=== PATIENT | male | born 1965 | race Caucasian/White ===

== ENCOUNTER 2019-08-06 14:21 | Inpatient (IN) | payer BC ==
[~2019-08-06] VITALS: Ht 193 cm; Wt 107.0 kg
[2019-08-06] MEDS ORDERED: IV NORMAL SALINE 1000ML BAG 1,000 ML IV ONE (16:15)
[2019-08-06 16:23] LABS: BASO # 0.1 x10^3/uL (0.0-0.2); BASO % 1 % (0-3); EOS # 0.1 x10^3/uL (0.0-0.7); EOS % 1 % (0-3); HEMATOCRIT 33.2 % (39.0-53.0); HEMOGLOBIN 11.3 g/dL (13.0-17.5); LYMPH # 1.7 x10^3/uL (1.0-4.8); LYMPH % 17 % (24-48); MEAN CORPUSCULAR HEMOGLOBIN 28 pg (25-35); MEAN CORPUSCULAR HGB CONC 34 g/dL (31-37); MEAN CORPUSCULAR VOLUME 84 fL (79-100); MONO # 0.6 x10^3/uL (0.0-1.1); MONO % 6 % (0-9); NEUT # 7.6 x10^3/uL (1.8-7.7); NEUT % 75 % (31-73); PLATELET COUNT 238 x10^3/uL (140-400); RED BLOOD COUNT 3.97 x10^6/uL (4.30-5.70); RED CELL DISTRIBUTION WIDTH 14.5 % (11.5-14.5); WHITE BLOOD COUNT 10.1 x10^3/uL (4.0-11.0)
[2019-08-06 16:32] LABS: CALCIUM 8.7 mg/dL (8.5-10.1); CREATININE 1.8 mg/dL (0.7-1.3); GFR 39.4; POTASSIUM 4.2 mmol/L (3.5-5.1)
[2019-08-06 16:38] LABS: ALBUMIN 3.1 g/dL (3.4-5.0); ALBUMIN/GLOBULIN RATIO 0.8 (1.0-1.7); TOTAL BILIRUBIN 0.5 mg/dL (0.2-1.0); TOTAL PROTEIN 7.2 g/dL (6.4-8.2)
--- NOTE | 2019-08-06 16:40 | RAD ---
EXAM: AP, oblique and lateral views of the right foot DATE: 08/06/2019 4:14 PM INDICATION: Right great toe pain, open ulcer COMPARISON: No Prior FINDINGS: Soft tissue swelling and irregularity at the plantar aspect of the right great toe consistent with clinically provided history of ulceration. Subtle irregularity is seen at the lateral margin of the tuft of the distal phalanx right great toe, suspicious for erosive change, which may be seen with acute osteomyelitis. Acute intra-articular fractures of the proximal phalanx fourth toe (extending to the PIP joint) and proximal phalanx fifth toe extending to the MTP and PIP joints. Associated soft tissue swelling. Midfoot degenerative changes are seen with cystic change. Calcaneal enthesopathy. Atherosclerotic vascular calcifications are seen. IMPRESSION: 1. Soft tissue irregularity/ulceration with shallow erosion at the lateral margin of the right great toe tuft suspicious for acute osteomyelitis. 2. Intra-articular fractures of the proximal phalanx fourth and fifth toes. Electronically signed by: Denilson Alvarado MD (08/06/2019 4:37 PM) [id number]
[2019-08-06] MEDS ORDERED: VANCOMYCIN 1.5 GM in IV NORMAL SALINE 500ML BAG 500 ML IV ONE (17:15)
--- NOTE | 2019-08-06 17:16 | PHYS DOC ---
Past Medical History Past Medical History: Diabetes-Type II, Hypertension, Other Additional Past Medical Histor: NEUROPATHY Past Surgical History: Coronary Bypass Surgery, Other Additional Past Surgical Histo: NECK Smoking Status: Never Smoker Alcohol Use: None Adult General Chief Complaint Chief Complaint: FOOT INJURY PAIN [facility] HPI Patient is a 54 year old [f__sex] who presents with [] Review of Systems Review of Systems Constitutional: Denies fever or chills [] Eyes: Denies change in visual acuity, redness, or eye pain [] HENT: Denies nasal congestion or sore throat [] Respiratory: Denies cough or shortness of breath [] Cardiovascular: No additional information not addressed in HPI [] GI: Denies abdominal pain, nausea, vomiting, bloody stools or diarrhea [] : Denies dysuria or hematuria [] Musculoskeletal: Denies back pain or joint pain [] Integument: Denies rash or skin lesions [] Neurologic: Denies headache, focal weakness or sensory changes [] Endocrine: Denies polyuria or polydipsia [] All other systems were reviewed and found to be within normal limits, except as documented in this note. Current Medications Current Medications Current Medications Medications (Trade) Dose Ordered Sig/Carla Start Time Stop Time Status Last Admin Dose Admin Sodium Chloride 1,000 ml @ 1,000 mls/hr 1X ONCE 08/06/19 16:15 08/06/19 17:14 08/06/19 16:31 1,000 MLS/HR Allergies Allergies Allergies Coded Allergies Type Severity Reaction Last Updated Verified Penicillins Adverse Reaction Mild "IT DOESN'T HELP ME,IT DOESN'T HURT ME" 08/06/19 Yes Physical Exam Physical Exam Constitutional: Well developed, well nourished, no acute distress, non-toxic appearance. [] HENT: Normocephalic, atraumatic, bilateral external ears normal, oropharynx moist, no oral exudates, nose normal. [] Eyes: PERRLA, EOMI, conjunctiva normal, no discharge. [] Neck: Normal range of motion, no tenderness, supple, no stridor. [] Cardiovascular:Heart rate regular rhythm, no murmur [] Lungs & Thorax: Bilateral breath sounds clear to auscultation [] Abdomen: Bowel sounds normal, soft, no tenderness, no masses, no pulsatile masses. [] Skin: Warm, dry, no erythema, no rash. [] Back: No tenderness, no CVA tenderness. [] Extremities: No tenderness, no cyanosis, no clubbing, ROM intact, no edema. [] Neurologic: Alert and oriented X 3, normal motor function, normal sensory function, no focal deficits noted. [] Psychologic: Affect normal, judgement normal, mood normal. [] Current Patient Data Vital Signs Vital Signs Date Time Temp Pulse Resp B/P (MAP) Pulse Ox O2 Delivery O2 Flow Rate FiO2 08/06/19 15:30 99.6 96 17 165/90 (115) 97 Room Air 99.6 Lab Values Laboratory Tests Test 08/06/19 15:58 White Blood Count 10.1 x10^3/uL (4.0-11.0) Red Blood Count 3.97 x10^6/uL (4.30-5.70) L Hemoglobin 11.3 g/dL (13.0-17.5) L Hematocrit 33.2 % (39.0-53.0) L Mean Corpuscular Volume 84 fL (79-100) Mean Corpuscular Hemoglobin 28 pg (25-35) Mean Corpuscular Hemoglobin Concent 34 g/dL (31-37) Red Cell Distribution Width 14.5 % (11.5-14.5) Platelet Count 238 x10^3/uL (140-400) Neutrophils (%) (Auto) 75 % (31-73) H Lymphocytes (%) (Auto) 17 % (24-48) L Monocytes (%) (Auto) 6 % (0-9) Eosinophils (%) (Auto) 1 % (0-3) Basophils (%) (Auto) 1 % (0-3) Neutrophils # (Auto) 7.6 x10^3/uL (1.8-7.7) Lymphocytes # (Auto) 1.7 x10^3/uL (1.0-4.8) Monocytes # (Auto) 0.6 x10^3/uL (0.0-1.1) Eosinophils # (Auto) 0.1 x10^3/uL (0.0-0.7) Basophils # (Auto) 0.1 x10^3/uL (0.0-0.2) Sodium Level 136 mmol/L (136-145) Potassium Level 4.2 mmol/L (3.5-5.1) Chloride Level 100 mmol/L (98-107) Carbon Dioxide Level 24 mmol/L (21-32) Anion Gap 12 (6-14) Blood Urea Nitrogen 19 mg/dL (8-26) Creatinine 1.8 mg/dL (0.7-1.3) H Estimated GFR (Cockcroft-Gault) 39.4 BUN/Creatinine Ratio 11 (6-20) Glucose Level 445 mg/dL (70-99) H Lactic Acid Level 1.6 mmol/L (0.4-2.0) Calcium Level 8.7 mg/dL (8.5-10.1) Total Bilirubin 0.5 mg/dL (0.2-1.0) Aspartate Amino Transferase (AST) 15 U/L (15-37) Alanine Aminotransferase (ALT) 16 U/L (16-63) Alkaline Phosphatase 109 U/L (46-116) Total Protein 7.2 g/dL (6.4-8.2) Albumin 3.1 g/dL (3.4-5.0) L Albumin/Globulin Ratio 0.8 (1.0-1.7) L Laboratory Tests 08/06/19 15:58 Laboratory Tests 08/06/19 15:58 EKG EKG [] Radiology/Procedures Radiology/Procedures PROCEDURE: FOOT RIGHT 3V EXAM: AP, oblique and lateral views of the right foot DATE: 08/06/2019 4:14 PM INDICATION: Right great toe pain, open ulcer COMPARISON: No Prior FINDINGS: Soft tissue swelling and irregularity at the plantar aspect of the right great toe consistent with clinically provided history of ulceration. Subtle irregularity is seen at the lateral margin of the tuft of the distal phalanx right great toe, suspicious for erosive change, which may be seen with acute osteomyelitis. Acute intra-articular fractures of the proximal phalanx fourth toe (extending to the PIP joint) and proximal phalanx fifth toe extending to the MTP and PIP joints. Associated soft tissue swelling. Midfoot degenerative changes are seen with cystic change. Calcaneal enthesopathy. Atherosclerotic vascular calcifications are seen. IMPRESSION: 1. Soft tissue irregularity/ulceration with shallow erosion at the lateral margin of the right great toe tuft suspicious for acute osteomyelitis. 2. Intra-articular fractures of the proximal phalanx fourth and fifth toes.[] Course & Med Decision Making Course & Med Decision Making Pertinent Labs and Imaging studies reviewed. (See chart for details) [id number]-spoke with Dr. Dougherty who is the admitting physician, and care was assumed following discussion of patient. Patient's vital signs stable. Patient remains afebrile, appears nontoxic, respirations even and unlabored. Patient will be admitted to the med/surg floor. Patient's case and plan of care also discussed with Dr.Kousha Conde Disclaimer Elton Disclaimer This electronic medical record was generated, in whole or in part, using a voice recognition dictation system. Departure Departure Impression: Primary Impression: Acute osteomyelitis of right foot Additional Impressions: Closed fracture of right toe with routine healing Hyperglycemia Disposition: ADMITTED INPATIENT Admitting Physician: EMY BOURNE) Condition: STABLE Referrals: SAURAV ORDONEZ MD (PCP) Problem Qualifiers Additional Impressions: Closed fracture of right toe with routine healing Toe: lesser toe Phalanx: proximal Fracture alignment: nondisplaced Qualified Codes: S92.514D - Nondisplaced fracture of proximal phalanx of right lesser toe(s), subsequent encounter for fracture with routine healing IZABELA OROPEZA [employer] LEAD[employer] Aug 06, 2019 17:16
--- NOTE | 2019-08-06 17:48 | PHYS DOC ---
Past Medical History Past Medical History: Diabetes-Type II, Hypertension, Other Additional Past Medical Histor: NEUROPATHY Past Surgical History: Coronary Bypass Surgery, Other Additional Past Surgical Histo: NECK Smoking Status: Never Smoker Alcohol Use: None Adult General Chief Complaint Chief Complaint: FOOT INJURY PAIN HPI HPI Patient is a 54 year old male who presents to the emergency department with complaints of a wound, swelling, and erythema to his right great toe that has been there for over a month. Patient states that he accidentally kicked a door at that time and that is when his symptoms began.. Patient states that his right fourth and fifth toes are also painful. He denies any fever or decreased sensation. Patient states that he is a diabetic and that he has pre-existing diabetic neuropathy in his toes. He currently denies any pain. He states that his last tetanus shot was less than 5 years ago. Review of Systems Review of Systems Constitutional: Denies fever or chills [] Eyes: Denies redness, or eye pain [] HENT: Denies nasal congestion or sore throat [] Respiratory: Denies cough or shortness of breath [] Cardiovascular: No additional information not addressed in HPI [] GI: Denies abdominal pain, nausea, vomiting, or diarrhea [] Musculoskeletal: SEE HPI Integument: see HPI Neurologic: Denies headache, focal weakness or sensory changes [] Endocrine: Denies polyuria or polydipsia [] Complete systems were reviewed and found to be within normal limits, except as documented in this note. Current Medications Current Medications Current Medications Medications (Trade) Dose Ordered Sig/Carla Start Time Stop Time Status Last Admin Dose Admin Sodium Chloride 1,000 ml @ 1,000 mls/hr 1X ONCE 08/06/19 16:15 08/06/19 17:14 08/06/19 16:31 1,000 MLS/HR Allergies Allergies Allergies Coded Allergies Type Severity Reaction Last Updated Verified Penicillins Adverse Reaction Mild "IT DOESN'T HELP ME,IT DOESN'T HURT ME" 08/06/19 Yes Physical Exam Physical Exam Constitutional: Well developed, well nourished, no acute distress, non-toxic appearance. [] HENT: Normocephalic, atraumatic, bilateral external ears normal, nose normal. [] Eyes: PERRLA, EOMI, conjunctiva normal, no discharge. [] Neck: Normal range of motion, no stridor. [] Cardiovascular:Heart rate regular rhythm Lungs & Thorax: Respirations even and unlabored, no retractions, no respiratory distress Skin: Warm, dry; 1.5 cm diameter necrotic area noted to plantar surface of distal R great toe with 5 cm x 2cm area that is non-blanchable surrounding this tissue, honey crusted weeping present at the base of the 3rd and 4th toes, generalized edema noted to R foot and toes, no obvious deformities, several scabbed areas notd to the R ankle and foot Extremities: RLE: 2+ pedal and posterior tibial puslse, no obvious deformity, no crepitus, no cyanosis, no clubbing, ROM intact Neurologic: Alert and oriented X 3, no focal deficits noted. [] Psychologic: Affect normal, judgement normal, mood normal. [] Current Patient Data Vital Signs Vital Signs Date Time Temp Pulse Resp B/P (MAP) Pulse Ox O2 Delivery O2 Flow Rate FiO2 08/06/19 15:30 99.6 96 17 165/90 (115) 97 Room Air 99.6 Lab Values Laboratory Tests Test 08/06/19 15:58 White Blood Count 10.1 x10^3/uL (4.0-11.0) Red Blood Count 3.97 x10^6/uL (4.30-5.70) L Hemoglobin 11.3 g/dL (13.0-17.5) L Hematocrit 33.2 % (39.0-53.0) L Mean Corpuscular Volume 84 fL (79-100) Mean Corpuscular Hemoglobin 28 pg (25-35) Mean Corpuscular Hemoglobin Concent 34 g/dL (31-37) Red Cell Distribution Width 14.5 % (11.5-14.5) Platelet Count 238 x10^3/uL (140-400) Neutrophils (%) (Auto) 75 % (31-73) H Lymphocytes (%) (Auto) 17 % (24-48) L Monocytes (%) (Auto) 6 % (0-9) Eosinophils (%) (Auto) 1 % (0-3) Basophils (%) (Auto) 1 % (0-3) Neutrophils # (Auto) 7.6 x10^3/uL (1.8-7.7) Lymphocytes # (Auto) 1.7 x10^3/uL (1.0-4.8) Monocytes # (Auto) 0.6 x10^3/uL (0.0-1.1) Eosinophils # (Auto) 0.1 x10^3/uL (0.0-0.7) Basophils # (Auto) 0.1 x10^3/uL (0.0-0.2) Sodium Level 136 mmol/L (136-145) Potassium Level 4.2 mmol/L (3.5-5.1) Chloride Level 100 mmol/L (98-107) Carbon Dioxide Level 24 mmol/L (21-32) Anion Gap 12 (6-14) Blood Urea Nitrogen 19 mg/dL (8-26) Creatinine 1.8 mg/dL (0.7-1.3) H Estimated GFR (Cockcroft-Gault) 39.4 BUN/Creatinine Ratio 11 (6-20) Glucose Level 445 mg/dL (70-99) H Lactic Acid Level 1.6 mmol/L (0.4-2.0) Calcium Level 8.7 mg/dL (8.5-10.1) Total Bilirubin 0.5 mg/dL (0.2-1.0) Aspartate Amino Transferase (AST) 15 U/L (15-37) Alanine Aminotransferase (ALT) 16 U/L (16-63) Alkaline Phosphatase 109 U/L (46-116) Total Protein 7.2 g/dL (6.4-8.2) Albumin 3.1 g/dL (3.4-5.0) L Albumin/Globulin Ratio 0.8 (1.0-1.7) L Laboratory Tests 08/06/19 15:58 Laboratory Tests 08/06/19 15:58 EKG EKG [] Radiology/Procedures Radiology/Procedures PROCEDURE: FOOT RIGHT 3V EXAM: AP, oblique and lateral views of the right foot DATE: 08/06/2019 4:14 PM INDICATION: Right great toe pain, open ulcer COMPARISON: No Prior FINDINGS: Soft tissue swelling and irregularity at the plantar aspect of the right great toe consistent with clinically provided history of ulceration. Subtle irregularity is seen at the lateral margin of the tuft of the distal phalanx right great toe, suspicious for erosive change, which may be seen with acute osteomyelitis. Acute intra-articular fractures of the proximal phalanx fourth toe (extending to the PIP joint) and proximal phalanx fifth toe extending to the MTP and PIP joints. Associated soft tissue swelling. Midfoot degenerative changes are seen with cystic change. Calcaneal enthesopathy. Atherosclerotic vascular calcifications are seen. IMPRESSION: 1. Soft tissue irregularity/ulceration with shallow erosion at the lateral margin of the right great toe tuft suspicious for acute osteomyelitis. 2. Intra-articular fractures of the proximal phalanx fourth and fifth toes.[] Course & Med Decision Making Course & Med Decision Making Pertinent Labs and Imaging studies reviewed. (See chart for details) 1709-spoke with Dr. Dougherty who is the admitting physician, and care was assumed following discussion of patient. Patient's vital signs stable. Patient remains afebrile, appears nontoxic, resp irations even and unlabored. Patient will be admitted to the med/surg floor. Patient's case and plan of care also discussed with Dr.Kousha Conde Disclaimer Elton Disclaimer This electronic medical record was generated, in whole or in part, using a voice recognition dictation system. Departure Departure Impression: Primary Impression: Acute osteomyelitis of right foot Additional Impressions: Hyperglycemia Closed fracture of right toe with routine healing Disposition: ADMITTED INPATIENT Admitting Physician: EMY (Farhat) Condition: STABLE Referrals: SAURAV ORDONEZ MD (PCP) Problem Qualifiers Additional Impressions: Closed fracture of right toe with routine healing Toe: lesser toe Phalanx: proximal Fracture alignment: nondisplaced Qu alified Codes: S92.514D - Nondisplaced fracture of proximal phalanx of right lesser toe(s), subsequent encounter for fracture with routine healing IZABELA OROPEZA [employer]OVER Aug 06, 2019 17:48
[2019-08-06] MEDS: VANCOMYCIN PER PHARMACY MC PRN (18:32)
--- NOTE | 2019-08-06 18:40 | NUR ---
Pharmacy Vancomycin Dosing Note S:Consulted to monitor and dose vancomycin started 08/06/19. O:KERRY STALEY is a 54 year old M with Osteomyelitis Height: 6 feet, 4 inches Weight: 106.8 kg [place] Body Weight: 86.80 Adjusted Body Weight: 94.80 Dosing Weight: Actual Other Antibiotics: - LABS: Last BUN: 19 Last Creatinine: 1.8 Creatinine Clearance: 62 mL/min Last WBC: 10.1 Last Procalcitonin: Tmax (past 24 hours): 99.6 Last dose given 08/06/19 at 1821 Vancomycin Dosing: Loading Dose: 1500 mg x1 Dosing Weight: Actual Target Trough: 15-20 A: Based on: weight and renal function P: 1. Begin Vancomycin 1500 mg IV q18h 2. Follow up Trough level on 08/08/19 at 0600 3. Pharmacy will continue to monitor, follow and adjust therapy as needed. Santa Jamison RPH, 08/06/19 [id number]
[2019-08-06 19:00] VITALS: BP 159/69
[2019-08-06] MEDS ORDERED: GABA300C18 PO (20:52)
[2019-08-06] MEDS ORDERED: LISI-338 PO (20:52)
[2019-08-06] MEDS ORDERED: METF10007 PO (20:52)
[2019-08-06] MEDS ORDERED: ICOS1CAP PO (20:52)
[2019-08-06] MEDS ORDERED: ATOR40TA59 PO (20:52)
[2019-08-06] MEDS ORDERED: INSU100V37 SQ (20:52)
[2019-08-06] MEDS ORDERED: CITA40TA5 PO (20:52)
[2019-08-06] MEDS ORDERED: EMPA1TAB3 PO (20:52)
[2019-08-06] MEDS ORDERED: ASPI81TA50 PO (20:52)
[2019-08-06] MEDS ORDERED: CARV6.25 PO (20:52)
[2019-08-06 23:00] VITALS: BP 143/65
[2019-08-07] VITALS (11 sets, daily range): BP systolic 140–169; BP diastolic 65–89
[2019-08-07] MEDS ORDERED: FLU VAX QS 2019-20 (36MOS+)/PF 0.5 ML SYRINGE. VAX IM ONE (09:00)
[2019-08-07 12:21] LABS: CREATININE 1.3 mg/dL (0.7-1.3); GFR 57.3
[2019-08-07] MEDS ORDERED: VANCOMYCIN 1.5 GM in IV NORMAL SALINE 500ML BAG 500 ML IV SCH (12:30)
[2019-08-07] MEDS ORDERED: DEXTROSE 50% 25 GM / 50ML DISP.SYRIN. IV PRN ×2 (15:00→15:15)
--- NOTE | 2019-08-07 15:19 | PDOC1 ---
History and Physical Date of Admission Date of Admission DATE: 08/07/19 TIME: 15:09 Source Source: Chart review, Patient History of Present Illness History of Present Illness Mr. Aguilar, is a 54 year old male admit with toe injury, he has new toe wound, swelling, and erythema to his right great toe that has been there for over a month. Patient states that he accidentally kicked a door at that time and that is whe He currently denies any pain. Past Medical History Cardiovascular: CAD, HTN Psych: Depression Endocrine: Diabetes Past Surgical History Past Surgical History: CABG (x4 3 years ago) Family History Family History: Diabetes Social History Smoke: No ALCOHOL: none Drugs: None Current Problem List Problem List Problems Medical Problems: (1) Acute osteomyelitis of right foot Status: Acute (2) Closed fracture of right toe with routine healing Status: Acute (3) Hyperglycemia Status: Acute Current Medications Current Medications Current Medications Sodium Chloride 1,000 ml @ 1,000 mls/hr 1X ONCE IV Last administered on 08/06/19at 16:31; Start 08/06/19 at 16:15; Stop 08/06/19 at 17:14; Status DC Cefazolin Sodium/ Dextrose 50 ml @ 100 mls/hr 1X ONCE IV Last administered on 08/06/19at 17:31; Start 08/06/19 at 17:15; Stop 08/06/19 at 17:44; Status DC Vancomycin HCl (Vanco Per Pharmacy) 1 each PRN DAILY PRN MC SEE COMMENTS Last administered on 08/06/19at 18:32; Start 08/06/19 at 17:15 Vancomycin HCl 1.5 gm/Sodium Chloride 500 ml @ 250 mls/hr 1X ONCE IV Last administered on 08/06/19at 18:21; Start 08/06/19 at 17:15; Stop 08/06/19 at 19:14; Status DC Vancomycin HCl 1.5 gm/Sodium Chloride 500 ml @ 250 mls/hr Q18H IV ; Start 08/07/19 at 12:30 Vancomycin HCl (Vancomycin Trough Level) 1 each 1X ONCE MC ; Start 08/08/19 at 06:00; Stop 08/08/19 at 06:01 Influenza Virus Vaccine Quadrival (Afluria Quad 2019-20 (3yr Up) Syringe) 0.5 ml ONCE ONCE VAX IM ; Start 08/07/19 at 09:00; Stop 08/07/19 at 09:45; Status DC Active Scripts Active Reported Tresiba (Insulin Degludec) 100 Unit/1 Ml Vial 40 Unit SQ QHS Lisinopril 5 Mg Tablet 1 Tab PO DAILY Vascepa (Icosapent Ethyl) 1 Gm Capsule 2 Cap PO BID 30 Days Coreg (Carvedilol) 6.25 Mg Tablet 6.25 Mg PO BIDWMEALS Citalopram Hbr (Citalopram Hydrobromide) 40 Mg Tablet 1 Tab PO DAILY Aspir-Low (Aspirin) 81 Mg Tablet.dr 1 Tab PO DAILY Atorvastatin Calcium 40 Mg Tablet 1 Tab PO DAILY Glyxambi 10 mg-5 mg Tablet (Empagliflozin/Linagliptin) 1 Each Tablet 1 Each PO DAILY Gabapentin (Gabapentin) 300 Mg Capsule 300 Mg PO BID Metformin Hcl 1,000 Mg Tablet 1,000 Mg PO BIDWMEALS Allergies Allergies: Coded Allergies: Penicillins (Verified Adverse Reaction, Mild, "IT DOESN'T HELP ME,IT DOESN'T HURT ME", 08/06/19) ROS General: No: Chills, Night Sweats, Fatigue, Malaise, Appetite, Other PSYCHOLOGICAL ROS: No: Anxiety, Behavioral Disorder, Concentration difficultie, Decreased libido, Depression, Disorientation, Hallucinations, Hostility, Irritablity, Memory difficulties, Mood Swings, Obsessive thoughts, Physical abuse, Sexual abuse, Sleep disturbances, Suicidal ideation, Other Eyes: No Blurry vision, No Decreased vision, No Double vision, No Dry eyes, No Excessive tearing, No Eye Pain, No Itchy Eyes, No Loss of vision, No Photophobia, No Scotomata, No Uses contacts, No Uses glasses, No Other Respiratory: No: Cough, Hemoptysis, Orthopnea, Pleuritic Pain, Shortness of breath, SOB with excertion, Sputum Changes, Stridor, Tachypnea, Wheezing, Other Cardiovascular: No Palpitations, No Orthopnea, No Paroxysmal Noc. Dyspnea, No Edema, No Lt Headedness, No Other Gastrointestinal: No Nausea, No Vomiting, No Abdominal Pain, No Diarrhea, No Constipation, No Melena, No Hematochezia, No Other Genitourinary: No Dysuria, No Frequency, No Incontinence, No Hematuria, No Retention, No Discharge, No Urgency, No Pain, No Flank Pain, No Other, No , No , No , No , No , No , No Musculoskeletal: Yes Joint Stiffness; No Gait Disturbance, No Joint Pain, No Joint Swelling, No Muscle Pain, No Muscular Weakness, No Pain In:, No Swelling In:, No Other Neurological: No Behavorial Changes, No Bowel/Bladder ControlChng, No Confusion, No Dizziness, No Gait Disturbance, No Headaches, No Impaired Coord/balance, No Memory Loss, No Numbness/Tingling, No Seizures, No Speech Problems, No Tremors, No Visual Changes, No Weakness, No Other Skin: Yes Dry Skin Physical Exam General: Alert, Cooperative, No acute distress HEENT: EOMI Lungs: Clear to auscultation, Normal air movement Heart: S1S2, no murmurs Rectal Exam: not examined Extremities: No clubbing, No edema, Normal pulses Skin: No rashes, No significant lesion Neuro: Normal speech, Sensation intact, Cranial nerves 3-12 NL Psych/Mental Status: Mood NL Vitals Vitals Vital Signs Date Time Temp Pulse Resp B/P (MAP) Pulse Ox O2 Delivery O2 Flow Rate FiO2 08/07/19 11:00 98.0 89 18 162/83 (109) 97 Room Air 98.0 Labs Labs Laboratory Tests Test 08/06/19 15:58 08/07/19 06:00 08/07/19 08:29 08/07/19 11:36 White Blood Count 10.1 x10^3/uL (4.0-11.0) Red Blood Count 3.97 x10^6/uL (4.30-5.70) Hemoglobin 11.3 g/dL (13.0-17.5) Hematocrit 33.2 % (39.0-53.0) Mean Corpuscular Volume 84 fL (79-100) Mean Corpuscular Hemoglobin 28 pg (25-35) Mean Corpuscular Hemoglobin Concent 34 g/dL (31-37) Red Cell Distribution Width 14.5 % (11.5-14.5) Platelet Count 238 x10^3/uL (140-400) Neutrophils (%) (Auto) 75 % (31-73) Lymphocytes (%) (Auto) 17 % (24-48) Monocytes (%) (Auto) 6 % (0-9) Eosinophils (%) (Auto) 1 % (0-3) Basophils (%) (Auto) 1 % (0-3) Neutrophils # (Auto) 7.6 x10^3/uL (1.8-7.7) Lymphocytes # (Auto) 1.7 x10^3/uL (1.0-4.8) Monocytes # (Auto) 0.6 x10^3/uL (0.0-1.1) Eosinophils # (Auto) 0.1 x10^3/uL (0.0-0.7) Basophils # (Auto) 0.1 x10^3/uL (0.0-0.2) Sodium Level 136 mmol/L (136-145) Potassium Level 4.2 mmol/L (3.5-5.1) Chloride Level 100 mmol/L (98-107) Carbon Dioxide Level 24 mmol/L (21-32) Anion Gap 12 (6-14) Blood Urea Nitrogen 19 mg/dL (8-26) Creatinine 1.8 mg/dL (0.7-1.3) 1.3 mg/dL (0.7-1.3) Estimated GFR (Cockcroft-Gault) 39.4 57.3 BUN/Creatinine Ratio 11 (6-20) Glucose Level 445 mg/dL (70-99) Lactic Acid Level 1.6 mmol/L (0.4-2.0) Calcium Level 8.7 mg/dL (8.5-10.1) Total Bilirubin 0.5 mg/dL (0.2-1.0) Aspartate Amino Transf (AST/SGOT) 15 U/L (15-37) Alanine Aminotransferase (ALT/SGPT) 16 U/L (16-63) Alkaline Phosphatase 109 U/L (46-116) Total Protein 7.2 g/dL (6.4-8.2) Albumin 3.1 g/dL (3.4-5.0) Albumin/Globulin Ratio 0.8 (1.0-1.7) Glucose (Fingerstick) 300 mg/dL (70-99) 271 mg/dL (70-99) Laboratory Tests Test 08/06/19 15:58 08/07/19 06:00 08/07/19 08:29 08/07/19 11:36 White Blood Count 10.1 x10^3/uL (4.0-11.0) Red Blood Count 3.97 x10^6/uL (4.30-5.70) Hemoglobin 11.3 g/dL (13.0-17.5) Hematocrit 33.2 % (39.0-53.0) Mean Corpuscular Volume 84 fL (79-100) Mean Corpuscular Hemoglobin 28 pg (25-35) Mean Corpuscular Hemoglobin Concent 34 g/dL (31-37) Red Cell Distribution Width 14.5 % (11.5-14.5) Platelet Count 238 x10^3/uL (140-400) Neutrophils (%) (Auto) 75 % (31-73) Lymphocytes (%) (Auto) 17 % (24-48) Monocytes (%) (Auto) 6 % (0-9) Eosinophils (%) (Auto) 1 % (0-3) Basophils (%) (Auto) 1 % (0-3) Neutrophils # (Auto) 7.6 x10^3/uL (1.8-7.7) Lymphocytes # (Auto) 1.7 x10^3/uL (1.0-4.8) Monocytes # (Auto) 0.6 x10^3/uL (0.0-1.1) Eosinophils # (Auto) 0.1 x10^3/uL (0.0-0.7) Basophils # (Auto) 0.1 x10^3/uL (0.0-0.2) Sodium Level 136 mmol/L (136-145) Potassium Level 4.2 mmol/L (3.5-5.1) Chloride Level 100 mmol/L (98-107) Carbon Dioxide Level 24 mmol/L (21-32) Anion Gap 12 (6-14) Blood Urea Nitrogen 19 mg/dL (8-26) Creatinine 1.8 mg/dL (0.7-1.3) 1.3 mg/dL (0.7-1.3) Estimated GFR (Cockcroft-Gault) 39.4 57.3 BUN/Creatinine Ratio 11 (6-20) Glucose Level 445 mg/dL (70-99) Lactic Acid Level 1.6 mmol/L (0.4-2.0) Calcium Level 8.7 mg/dL (8.5-10.1) Total Bilirubin 0.5 mg/dL (0.2-1.0) Aspartate Amino Transf (AST/SGOT) 15 U/L (15-37) Alanine Aminotransferase (ALT/SGPT) 16 U/L (16-63) Alkaline Phosphatase 109 U/L (46-116) Total Protein 7.2 g/dL (6.4-8.2) Albumin 3.1 g/dL (3.4-5.0) Albumin/Globulin Ratio 0.8 (1.0-1.7) Glucose (Fingerstick) 300 mg/dL (70-99) 271 mg/dL (70-99) VTE Prophylaxis Ordered VTE Prophylaxis Devices: No VTE Pharmacological Prophylaxi: Yes Assessment/Plan Assessment/Plan Dm2, poor control, he reports sugars in 300 range at baseline toe injury at home, now appear to have cellulitis, concern for osteo CAD, hx CABG, x4, 3 years ago needs better blood glucose control admit RUPALI KEYS MD Aug 07, 2019 15:18
[2019-08-07] MEDS: VANCOMYCIN PER PHARMACY MC PRN (16:04)
[2019-08-07] MEDS ORDERED: INSULIN LISPRO 300 UNITS/3 ML VIAL. SQ SCH (17:00)
[2019-08-07] MEDS: INSULIN LISPRO 300 UNITS/3 ML VIAL. SQ SCH ×2 (17:00)
[2019-08-07] MEDS: metFORMIN 500 MG TABLET PO SCH (17:00)
[2019-08-07] MEDS: CARVEDILOL 6.25 MG TABLET. PO SCH (17:00)
--- NOTE | 2019-08-07 17:00 | NUR ---
Patient transferred to surgery area. They will check pt's blood sugar and give insulin
[2019-08-07] MEDS ORDERED: IV RINGERS,LACTATED 1000ML 1,000 ML IV SCH (17:34)
[2019-08-07] MEDS ORDERED: MORPHINE SULFATE 2 MG/ML VIAL. IV PRN (17:45)
[2019-08-07] MEDS ORDERED: LIDOCAINE 1% PF 2 ML VIAL. ID PRN (17:45)
[2019-08-07] MEDS ORDERED: fentaNYL PF VIAL 100 MCG/2 ML VIAL IV PRN ×2 (17:45)
[2019-08-07] MEDS ORDERED: PROCHLORPERAZINE 10 MG/2 ML VIAL. IV PRN (17:45)
[2019-08-07] MEDS ORDERED: HYDROmorphone 2 MG/ML VIAL IV PRN (17:45)
[2019-08-07] MEDS ORDERED: SEVOFLURANE 31 TO 60 MINUTES. IH ONE (17:48)
[2019-08-07] MEDS ORDERED: LIDOCAINE 2% PF 5 ML VIAL. ONE (17:48)
[2019-08-07] MEDS ORDERED: PROPOFOL 20 ML IV ONE (17:49)
[2019-08-07] MEDS ORDERED: ONDANSETRON PF 4 MG/2 ML VIAL. ONE (17:49)
[2019-08-07] MEDS ORDERED: METOCLOPRAMIDE HCL 10 MG/2 ML VIAL. ONE (17:49)
[2019-08-07] MEDS ORDERED: FAMOTIDINE 20 MG/2 ML VIAL ONE (17:49)
[2019-08-07] MEDS ORDERED: PHENYLEPHRINE in 0.9% NACL PF 1 MG/10 ML SYRINGE. IV ONE (18:01)
[2019-08-07] MEDS ORDERED: INSULIN LISPRO 100 UNIT/ML 3ML VIAL for OP,RR ONLY. SQ PRN (18:45)
--- NOTE | 2019-08-07 18:45 | NUR ---
Patient returned to room 412 from the OR recovery. He is alert and stating that pain is under control at the moment
[2019-08-07] MEDS ORDERED: ZOLPIDEM 5 MG TABLET. PO PRN (20:00)
--- NOTE | 2019-08-07 20:29 | PDOC4 ---
Operative Note Operative Note Date of surgery: 08/07/2019 Preoperative diagnosis: Osteomyelitis right great toe Postoperative diagnosis: Same Operative procedure: Right great toe amputation Surgeon: Gage Anesthesia: Gen. Estimated blood loss: 20 mL Complications: None Specimens: Distal phalanx of toe sent for gross specimen Operative indications: Please see my detailed operative indications outlined in his dictated orthopedic consultation of today Operative text: Patient was identified procedure verified patient placed in the supine position on the operating table. After adequate amounts of general anesthesia were administered the right lower extremity was prepped and draped in standard sterile fashion and after timeout was performed patient procedure identified and verified the wound was probed and found to have necrosis with some purulent drainage and easily probed to bone in the distal phalanx and interphalangeal joint area. A fishmouth incision was made with the base just proximal to the interphalangeal joint skin flaps were fashioned on both superior and inferior from remaining viable tissue the nailbed was excised completely with the specimen and the head of the proximal phalanx was excised and trimmed to remove any of the residual area of erosion medially back to good bleeding healthy bone. Thorough irrigation carried out normal saline solution bleeding points controlled by electrocautery and skin was well opposed with 3-0 nylon suture sterile dressings were applied patient was returned to recovery room in stable condition having tolerated the procedure well PARK BRADY MD Aug 07, 2019 20:29
[2019-08-07] MEDS ORDERED: CITALOPRAM 20 MG TABLET. PO ONE (20:30)
[2019-08-07] MEDS ORDERED: INSULIN GLARGINE SYRINGE. SQ SCH (21:00)
[2019-08-07] MEDS: LACTOBACILLUS RHAMNOSUS GG 1 CAPSULE. PO SCH (21:20)
[2019-08-07] MEDS: GABAPENTIN 300 MG CAPSULE. PO SCH (21:20)
[2019-08-07] MEDS: NON FORMULARY ITEM (Icosapent Ethyl (Vascepa) 2 CAP) PO SCH (21:20)
--- NOTE | 2019-08-07 21:22 | NUR ---
WOW system currently not allowing this RN to log into the system. Medication administration documented on hard paper copy in and manual administered in the computer for pharmacy.
[2019-08-07] MEDS ORDERED: MORPHINE SULFATE 4 MG/ML VIAL. IV PRN (23:00)
[2019-08-07] MEDS: oxyCODONE/APAP 5/325 1 TAB TABLET PO PRN (23:00)
--- NOTE | 2019-08-08 00:59 | CONS ---
DATE OF CONSULTATION: 08/07/2019 REQUESTING PHYSICIAN: Dr. Dougherty. REASON FOR CONSULTATION: Right great toe osteomyelitis. HISTORY OF PRESENT ILLNESS: The patient is a 54-year-old male who indicates that he has had a right great toe wound for about a month. It started very small on the pad of his toe. His indicates that he had kicked a door frame and she encouraged him to go to the doctor right away, but he did not. He is a diabetic and had some neuropathy and has had really no treatment for this, but has had worsening wound on his foot and developed some redness, blistering and redness up into the forefoot and also some burning pain along the medial aspect of his ankle and he finally went in to Dr. Sesay, his primary care physician who sent him directly to the Emergency Department where he was admitted. PAST MEDICAL HISTORY: Significant for type 2 diabetes, where he takes insulin, as well as hypertension and some diabetic neuropathy. PAST SURGICAL HISTORY: Coronary artery bypass surgery, 4-vessel about 3 years ago. No chest pain since. He has had some neck surgeries as well. SOCIAL HISTORY: He is accompanied by his today. He is . Denies smoking, alcohol or drug use. MEDICATIONS: List is reviewed. ALLERGIES: INCLUDE PENICILLINS, WHICH APPARENTLY GAVE HIM A RASH, BUT HE SAYS THAT IT IS NOT SEVERE. FAMILY HISTORY: Denies any significant family history. REVIEW OF SYSTEMS: He has had some chills and feels always cold and that has been worse over the past week. Otherwise significant for the neuropathy and some burning in his ankle, but no other symptoms aside from some of his chronic neck and back issues. PHYSICAL EXAMINATION: GENERAL: Pleasant, cooperative male, alert and oriented, no acute distress. EXTREMITIES: On examination of the right foot, he has about a 1 cm round necrotic area over the great toe just distal to the interphalangeal joint. He has some blistering medially and clear infection. He is tender over the interphalangeal joint with motion, not so much so over the metatarsophalangeal joint. He has some redness at the base of his toes, great toe extending over to the second and third toe, a little bit of his foot and is tender along the medial aspect of the ankle. He has stocking distribution neuropathy. He can fully plantar and dorsiflex both of his feet with no apparent pain and has no ankle joint effusion itself. Both ankles are stable to examination. He has normal examination of the contralateral foot aside from stocking distribution neuropathy. Normal alignment, stability, bilateral hips and knees. VITAL SIGNS: Include a temperature of 99.6. LABORATORY DATA: White count notable for 10.1 and 75% neutrophils. IMAGING: X-rays of the right foot show some erosion at the medial portion of the proximal phalanx of the great toe at the interphalangeal joint area. A radiology report also reports a shallow erosion at the lateral margin of the tuft of the great toe, suspicious for acute osteomyelitis. He also has healing fractures of the proximal phalanx of the fourth and fifth toes, likely from kicking the door frame. He has some mild pain in that area, but toes otherwise examined normally. IMPRESSION: Right great toe osteomyelitis. TREATMENT PLAN: I had gone over with him the typical long course of antibiotics that would be required to resolve this nonoperatively and he does have a large wound, would need certainly debridement of the wound and wound care. We talked about the option of removing the concerning osteomyelitic bone and shortening and closing the toe. I explained to he and his that this would have to go back before the joint to definitively address some of the erosion that we see medially at the interphalangeal joint. Other than that, he may need some ongoing wound care, and antibiotics for some of the redness in his foot. He was anxious to get back to work. I told him that may be delayed and as much as we need to get the wound healed then keep pressure off of that to avoid additional complications as well as possible, but there may be a need for additional procedures if this does not resolve or if he has ongoing infection or failure to heal. All his questions were answered. He wishes to proceed with surgical evaluation and treatment, which will occur today following an adequate n.p.o., as he had eaten lunch at 11:30, we will plan on 05:30 or a little bit later for his procedure. PARK BRADY MD DR: SHAWNEE/jaqueline JOB#: [id number] / [id number]
[2019-08-08 03:00] VITALS: BP 123/71
[2019-08-08 07:08] LABS: BASO % 1 % (0-3); EOS # 0.2 x10^3/uL (0.0-0.7); EOS % 4 % (0-3); HEMATOCRIT 30.6 % (39.0-53.0); HEMOGLOBIN 10.4 g/dL (13.0-17.5); LYMPH # 1.8 x10^3/uL (1.0-4.8); LYMPH % 31 % (24-48); MEAN CORPUSCULAR HEMOGLOBIN 28 pg (25-35); MEAN CORPUSCULAR HGB CONC 34 g/dL (31-37); MEAN CORPUSCULAR VOLUME 84 fL (79-100); MONO # 0.5 x10^3/uL (0.0-1.1); MONO % 8 % (0-9); NEUT # 3.4 x10^3/uL (1.8-7.7); NEUT % 57 % (31-73); PLATELET COUNT 196 x10^3/uL (140-400); RED BLOOD COUNT 3.66 x10^6/uL (4.30-5.70); RED CELL DISTRIBUTION WIDTH 14.1 % (11.5-14.5); WHITE BLOOD COUNT 5.9 x10^3/uL (4.0-11.0)
[2019-08-08 07:28] LABS: VANC TR 9.1 mcg/mL (10.0-20.0)
[2019-08-08 07:44] LABS: CALCIUM 8.1 mg/dL (8.5-10.1); CREATININE 1.2 mg/dL (0.7-1.3); GFR 62.9; POTASSIUM 3.8 mmol/L (3.5-5.1)
[2019-08-08] MEDS: VANCOMYCIN PER PHARMACY MC PRN (07:45)
--- NOTE | 2019-08-08 07:45 | NUR ---
Pharmacy Vancomycin Dosing Note S: Consulted to monitor and dose vancomycin started 08/06/19. O: KERRY STALEY is a 54 year old M with Cellulitis, Osteomyelitis. Other Antibiotics: cefazolin LABS: Last BUN: 19 Last Creatinine: 1.2 Creatinine Clearance: 93 mL/min Last WBC: 10.1 Tmax (past 24 hours): 98.2 Microbiology: 08/05: BC- NGTD I/O: 550/1075 Drug Levels: Last Trough level: 9.1 on 08/08/19 at 0600 Last dose given 08/07/19 at 1400 Vancomycin Dosing: Dosing Weight: Actual Target Trough: 15-20 A: Based on: patient's weight, renal function and trough level. P: 1. Begin Vancomycin 1500 mg IV q12h 2. Follow up Trough level on 08/09/19 at 1930 3. Pharmacy will continue to monitor, follow and adjust therapy as needed. ELINA CONTRERAS [facility], 08/08/19 [id number]
[2019-08-08 07:59] VITALS: BP 167/75
[2019-08-08] MEDS ORDERED: VANCOMYCIN 1.5 GM in IV NORMAL SALINE 500ML BAG 500 ML IV SCH (08:00)
[2019-08-08] MEDS: oxyCODONE/APAP 5/325 1 TAB TABLET PO PRN ×2 (08:33→15:11)
[2019-08-08] MEDS: INSULIN LISPRO 300 UNITS/3 ML VIAL. SQ SCH ×4 (08:43→12:47)
[2019-08-08] MEDS ORDERED: NON FORMULARY ITEM (Empagliflozin/Linagliptin (Glyxambi 10 mg-5 mg Tablet) 1 EACH) PO SCH (09:00)
[2019-08-08] MEDS ORDERED: ASPIRIN ENTERIC COATED 81 MG TABLET.DR. PO SCH (09:00)
[2019-08-08] MEDS: NON FORMULARY ITEM (Icosapent Ethyl (Vascepa) 2 CAP) PO SCH (09:00)
[2019-08-08] MEDS ORDERED: ATORVASTATIN CALCIUM 40 MG TABLET. PO SCH (09:00)
[2019-08-08] MEDS ORDERED: LISINOPRIL 5 MG TABLET. PO SCH (09:00)
[2019-08-08] MEDS ORDERED: CITALOPRAM 20 MG TABLET. PO SCH (09:00)
[2019-08-08] MEDS: LACTOBACILLUS RHAMNOSUS GG 1 CAPSULE. PO SCH (09:54)
[2019-08-08] MEDS: CARVEDILOL 6.25 MG TABLET. PO SCH (09:54)
[2019-08-08] MEDS: GABAPENTIN 300 MG CAPSULE. PO SCH (09:54)
[2019-08-08] MEDS: metFORMIN 500 MG TABLET PO SCH (09:55)
--- NOTE | 2019-08-08 09:59 | PDOC ---
PROGRESS NOTES Subjective Subjective Problems overnight: Very little pain at right great toe he reports no fever chills or other complaints he has not as of yet really gotten around with physical therapy Objective Vital Signs Vital Signs Date Time Temp Pulse Resp B/P (MAP) Pulse Ox O2 Delivery O2 Flow Rate FiO2 08/08/19 08:33 20 Room Air 08/08/19 07:59 98.1 87 167/75 (105) 97 98.1 08/07/19 18:25 8 Physical Exam Right great toe dressing with no drainage. He has no burning sensation over the medial ankle as he reported preoperatively. Excellent ankle range of motion normal stability distal pulses and sensation are intact aside from baseline neuropathy Labs Laboratory Tests Test 08/06/19 15:58 08/07/19 06:00 08/07/19 08:29 08/07/19 11:36 White Blood Count 10.1 x10^3/uL (4.0-11.0) Red Blood Count 3.97 x10^6/uL (4.30-5.70) Hemoglobin 11.3 g/dL (13.0-17.5) Hematocrit 33.2 % (39.0-53.0) Mean Corpuscular Volume 84 fL (79-100) Mean Corpuscular Hemoglobin 28 pg (25-35) Mean Corpuscular Hemoglobin Concent 34 g/dL (31-37) Red Cell Distribution Width 14.5 % (11.5-14.5) Platelet Count 238 x10^3/uL (140-400) Neutrophils (%) (Auto) 75 % (31-73) Lymphocytes (%) (Auto) 17 % (24-48) Monocytes (%) (Auto) 6 % (0-9) Eosinophils (%) (Auto) 1 % (0-3) Basophils (%) (Auto) 1 % (0-3) Neutrophils # (Auto) 7.6 x10^3/uL (1.8-7.7) Lymphocytes # (Auto) 1.7 x10^3/uL (1.0-4.8) Monocytes # (Auto) 0.6 x10^3/uL (0.0-1.1) Eosinophils # (Auto) 0.1 x10^3/uL (0.0-0.7) Basophils # (Auto) 0.1 x10^3/uL (0.0-0.2) Sodium Level 136 mmol/L (136-145) Potassium Level 4.2 mmol/L (3.5-5.1) Chloride Level 100 mmol/L (98-107) Carbon Dioxide Level 24 mmol/L (21-32) Anion Gap 12 (6-14) Blood Urea Nitrogen 19 mg/dL (8-26) Creatinine 1.8 mg/dL (0.7-1.3) 1.3 mg/dL (0.7-1.3) Estimated GFR (Cockcroft-Gault) 39.4 57.3 BUN/Creatinine Ratio 11 (6-20) Glucose Level 445 mg/dL (70-99) Lactic Acid Level 1.6 mmol/L (0.4-2.0) Calcium Level 8.7 mg/dL (8.5-10.1) Total Bilirubin 0.5 mg/dL (0.2-1.0) Aspartate Amino Transf (AST/SGOT) 15 U/L (15-37) Alanine Aminotransferase (ALT/SGPT) 16 U/L (16-63) Alkaline Phosphatase 109 U/L (46-116) Total Protein 7.2 g/dL (6.4-8.2) Albumin 3.1 g/dL (3.4-5.0) Albumin/Globulin Ratio 0.8 (1.0-1.7) Glucose (Fingerstick) 300 mg/dL (70-99) 271 mg/dL (70-99) Test 08/07/19 16:49 08/07/19 18:28 08/07/19 21:08 08/08/19 06:00 Glucose (Fingerstick) 236 mg/dL (70-99) 199 mg/dL (70-99) 259 mg/dL (70-99) White Blood Count 5.9 x10^3/uL (4.0-11.0) Red Blood Count 3.66 x10^6/uL (4.30-5.70) Hemoglobin 10.4 g/dL (13.0-17.5) Hematocrit 30.6 % (39.0-53.0) Mean Corpuscular Volume 84 fL (79-100) Mean Corpuscular Hemoglobin 28 pg (25-35) Mean Corpuscular Hemoglobin Concent 34 g/dL (31-37) Red Cell Distribution Width 14.1 % (11.5-14.5) Platelet Count 196 x10^3/uL (140-400) Neutrophils (%) (Auto) 57 % (31-73) Lymphocytes (%) (Auto) 31 % (24-48) Monocytes (%) (Auto) 8 % (0-9) Eosinophils (%) (Auto) 4 % (0-3) Basophils (%) (Auto) 1 % (0-3) Neutrophils # (Auto) 3.4 x10^3/uL (1.8-7.7) Lymphocytes # (Auto) 1.8 x10^3/uL (1.0-4.8) Monocytes # (Auto) 0.5 x10^3/uL (0.0-1.1) Eosinophils # (Auto) 0.2 x10^3/uL (0.0-0.7) Basophils # (Auto) 0.0 x10^3/uL (0.0-0.2) Sodium Level 141 mmol/L (136-145) Potassium Level 3.8 mmol/L (3.5-5.1) Chloride Level 105 mmol/L (98-107) Carbon Dioxide Level 27 mmol/L (21-32) Anion Gap 9 (6-14) Blood Urea Nitrogen 18 mg/dL (8-26) Creatinine 1.2 mg/dL (0.7-1.3) Estimated GFR (Cockcroft-Gault) 62.9 Glucose Level 204 mg/dL (70-99) Calcium Level 8.1 mg/dL (8.5-10.1) Vancomycin Level Trough 9.1 mcg/mL (10.0-20.0) Vancomycin Last Dose Date 08/07/19 Vancomycin Last Dose Time 1230 Test 08/08/19 07:37 Glucose (Fingerstick) 248 mg/dL (70-99) Laboratory Tests Test 08/07/19 11:36 08/07/19 16:49 08/07/19 18:28 08/07/19 21:08 Glucose (Fingerstick) 271 mg/dL (70-99) 236 mg/dL (70-99) 199 mg/dL (70-99) 259 mg/dL (70-99) Test 08/08/19 06:00 08/08/19 07:37 White Blood Count 5.9 x10^3/uL (4.0-11.0) Red Blood Count 3.66 x10^6/uL (4.30-5.70) Hemoglobin 10.4 g/dL (13.0-17.5) Hematocrit 30.6 % (39.0-53.0) Mean Corpuscular Volume 84 fL (79-100) Mean Corpuscular Hemoglobin 28 pg (25-35) Mean Corpuscular Hemoglobin Concent 34 g/dL (31-37) Red Cell Distribution Width 14.1 % (11.5-14.5) Platelet Count 196 x10^3/uL (140-400) Neutrophils (%) (Auto) 57 % (31-73) Lymphocytes (%) (Auto) 31 % (24-48) Monocytes (%) (Auto) 8 % (0-9) Eosinophils (%) (Auto) 4 % (0-3) Basophils (%) (Auto) 1 % (0-3) Neutrophils # (Auto) 3.4 x10^3/uL (1.8-7.7) Lymphocytes # (Auto) 1.8 x10^3/uL (1.0-4.8) Monocytes # (Auto) 0.5 x10^3/uL (0.0-1.1) Eosinophils # (Auto) 0.2 x10^3/uL (0.0-0.7) Basophils # (Auto) 0.0 x10^3/uL (0.0-0.2) Sodium Level 141 mmol/L (136-145) Potassium Level 3.8 mmol/L (3.5-5.1) Chloride Level 105 mmol/L (98-107) Carbon Dioxide Level 27 mmol/L (21-32) Anion Gap 9 (6-14) Blood Urea Nitrogen 18 mg/dL (8-26) Creatinine 1.2 mg/dL (0.7-1.3) Estimated GFR (Cockcroft-Gault) 62.9 Glucose Level 204 mg/dL (70-99) Calcium Level 8.1 mg/dL (8.5-10.1) Vancomycin Level Trough 9.1 mcg/mL (10.0-20.0) Vancomycin Last Dose Date 08/07/19 Vancomycin Last Dose Time 1230 Glucose (Fingerstick) 248 mg/dL (70-99) Assessment Assessment POD# 1 right great toe amputation Plan Plan of Care Stable for discharge from an orthopedic standpoint. I would plan about 10 days of Keflex 500 mg by mouth 4 times a day as he had some cellulitis but osteomyelitis is all surgically removed and he had good blood supply to the remaining bone and soft tissues to facilitate closure I was very blunt with him about the need to very carefully keep weight and pressure off of his toe surgical site he can weight-bear on his heel with crutches and a postoperative open toed shoe. Likewise as I discussed with he and his I would recommend that he concentrate on getting this area healed up proper nutrition and control of his diabetes which are all crucial in his healing. 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
--- NOTE | 2019-08-08 10:14 | PDOC3 ---
Discharge Summary Visit Information Date of Admission: Aug 06, 2019 Date of Discharge: Aug 08, 2019 Final Diagnosis Dm2, poor control, he reports sugars in 300 range at baseline toe injury at home, sepsis cellulitis osteomyeltis toe, CAD, hx CABG, x4, 3 years ago needs better blood glucose control Problems Medical Problems: (1) Acute osteomyelitis of right foot Status: Acute (2) Closed fracture of right toe with routine healing Status: Acute (3) Hyperglycemia Status: Acute Brief Hospital Course Allergies Allergies Coded Allergies Type Severity Reaction Last Updated Verified Penicillins Adverse Reaction Mild "IT DOESN'T HELP ME,IT DOESN'T HURT ME" 08/06/19 Yes Vital Signs Vital Signs Date Time Temp Pulse Resp B/P (MAP) Pulse Ox O2 Delivery O2 Flow Rate FiO2 08/08/19 09:54 87 167/75 08/08/19 08:33 20 Room Air 08/08/19 07:59 98.1 97 98.1 08/07/19 18:25 8 Lab Results Laboratory Tests Test 08/06/19 15:58 08/07/19 06:00 08/07/19 08:29 08/07/19 11:36 White Blood Count 10.1 x10^3/uL (4.0-11.0) Red Blood Count 3.97 x10^6/uL (4.30-5.70) Hemoglobin 11.3 g/dL (13.0-17.5) Hematocrit 33.2 % (39.0-53.0) Mean Corpuscular Volume 84 fL (79-100) Mean Corpuscular Hemoglobin 28 pg (25-35) Mean Corpuscular Hemoglobin Concent 34 g/dL (31-37) Red Cell Distribution Width 14.5 % (11.5-14.5) Platelet Count 238 x10^3/uL (140-400) Neutrophils (%) (Auto) 75 % (31-73) Lymphocytes (%) (Auto) 17 % (24-48) Monocytes (%) (Auto) 6 % (0-9) Eosinophils (%) (Auto) 1 % (0-3) Basophils (%) (Auto) 1 % (0-3) Neutrophils # (Auto) 7.6 x10^3/uL (1.8-7.7) Lymphocytes # (Auto) 1.7 x10^3/uL (1.0-4.8) Monocytes # (Auto) 0.6 x10^3/uL (0.0-1.1) Eosinophils # (Auto) 0.1 x10^3/uL (0.0-0.7) Basophils # (Auto) 0.1 x10^3/uL (0.0-0.2) Sodium Level 136 mmol/L (136-145) Potassium Level 4.2 mmol/L (3.5-5.1) Chloride Level 100 mmol/L (98-107) Carbon Dioxide Level 24 mmol/L (21-32) Anion Gap 12 (6-14) Blood Urea Nitrogen 19 mg/dL (8-26) Creatinine 1.8 mg/dL (0.7-1.3) 1.3 mg/dL (0.7-1.3) Estimated GFR (Cockcroft-Gault) 39.4 57.3 BUN/Creatinine Ratio 11 (6-20) Glucose Level 445 mg/dL (70-99) Lactic Acid Level 1.6 mmol/L (0.4-2.0) Calcium Level 8.7 mg/dL (8.5-10.1) Total Bilirubin 0.5 mg/dL (0.2-1.0) Aspartate Amino Transf (AST/SGOT) 15 U/L (15-37) Alanine Aminotransferase (ALT/SGPT) 16 U/L (16-63) Alkaline Phosphatase 109 U/L (46-116) Total Protein 7.2 g/dL (6.4-8.2) Albumin 3.1 g/dL (3.4-5.0) Albumin/Globulin Ratio 0.8 (1.0-1.7) Glucose (Fingerstick) 300 mg/dL (70-99) 271 mg/dL (70-99) Test 08/07/19 16:49 08/07/19 18:28 08/07/19 21:08 08/08/19 06:00 Glucose (Fingerstick) 236 mg/dL (70-99) 199 mg/dL (70-99) 259 mg/dL (70-99) White Blood Count 5.9 x10^3/uL (4.0-11.0) Red Blood Count 3.66 x10^6/uL (4.30-5.70) Hemoglobin 10.4 g/dL (13.0-17.5) Hematocrit 30.6 % (39.0-53.0) Mean Corpuscular Volume 84 fL (79-100) Mean Corpuscular Hemoglobin 28 pg (25-35) Mean Corpuscular Hemoglobin Concent 34 g/dL (31-37) Red Cell Distribution Width 14.1 % (11.5-14.5) Platelet Count 196 x10^3/uL (140-400) Neutrophils (%) (Auto) 57 % (31-73) Lymphocytes (%) (Auto) 31 % (24-48) Monocytes (%) (Auto) 8 % (0-9) Eosinophils (%) (Auto) 4 % (0-3) Basophils (%) (Auto) 1 % (0-3) Neutrophils # (Auto) 3.4 x10^3/uL (1.8-7.7) Lymphocytes # (Auto) 1.8 x10^3/uL (1.0-4.8) Monocytes # (Auto) 0.5 x10^3/uL (0.0-1.1) Eosinophils # (Auto) 0.2 x10^3/uL (0.0-0.7) Basophils # (Auto) 0.0 x10^3/uL (0.0-0.2) Sodium Level 141 mmol/L (136-145) Potassium Level 3.8 mmol/L (3.5-5.1) Chloride Level 105 mmol/L (98-107) Carbon Dioxide Level 27 mmol/L (21-32) Anion Gap 9 (6-14) Blood Urea Nitrogen 18 mg/dL (8-26) Creatinine 1.2 mg/dL (0.7-1.3) Estimated GFR (Cockcroft-Gault) 62.9 Glucose Level 204 mg/dL (70-99) Calcium Level 8.1 mg/dL (8.5-10.1) Vancomycin Level Trough 9.1 mcg/mL (10.0-20.0) Vancomycin Last Dose Date 08/07/19 Vancomycin Last Dose Time 1230 Test 08/08/19 07:37 Glucose (Fingerstick) 248 mg/dL (70-99) Laboratory Tests Test 08/07/19 11:36 08/07/19 16:49 08/07/19 18:28 08/07/19 21:08 Glucose (Fingerstick) 271 mg/dL (70-99) 236 mg/dL (70-99) 199 mg/dL (70-99) 259 mg/dL (70-99) Test 08/08/19 06:00 08/08/19 07:37 White Blood Count 5.9 x10^3/uL (4.0-11.0) Red Blood Count 3.66 x10^6/uL (4.30-5.70) Hemoglobin 10.4 g/dL (13.0-17.5) Hematocrit 30.6 % (39.0-53.0) Mean Corpuscular Volume 84 fL (79-100) Mean Corpuscular Hemoglobin 28 pg (25-35) Mean Corpuscular Hemoglobin Concent 34 g/dL (31-37) Red Cell Distribution Width 14.1 % (11.5-14.5) Platelet Count 196 x10^3/uL (140-400) Neutrophils (%) (Auto) 57 % (31-73) Lymphocytes (%) (Auto) 31 % (24-48) Monocytes (%) (Auto) 8 % (0-9) Eosinophils (%) (Auto) 4 % (0-3) Basophils (%) (Auto) 1 % (0-3) Neutrophils # (Auto) 3.4 x10^3/uL (1.8-7.7) Lymphocytes # (Auto) 1.8 x10^3/uL (1.0-4.8) Monocytes # (Auto) 0.5 x10^3/uL (0.0-1.1) Eosinophils # (Auto) 0.2 x10^3/uL (0.0-0.7) Basophils # (Auto) 0.0 x10^3/uL (0.0-0.2) Sodium Level 141 mmol/L (136-145) Potassium Level 3.8 mmol/L (3.5-5.1) Chloride Level 105 mmol/L (98-107) Carbon Dioxide Level 27 mmol/L (21-32) Anion Gap 9 (6-14) Blood Urea Nitrogen 18 mg/dL (8-26) Creatinine 1.2 mg/dL (0.7-1.3) Estimated GFR (Cockcroft-Gault) 62.9 Glucose Level 204 mg/dL (70-99) Calcium Level 8.1 mg/dL (8.5-10.1) Vancomycin Level Trough 9.1 mcg/mL (10.0-20.0) Vancomycin Last Dose Date 08/07/19 Vancomycin Last Dose Time 1230 Glucose (Fingerstick) 248 mg/dL (70-99) Brief Hospital Course Mr. Aguilar is a 54 old admit with toe pain and well and osteo, ankle burning, ankle pain started, cellultiis, taken to OR, amputated great toe 3.14, Dr. Almonte 10 days of Keflex 500 mg by mouth 4 times a day for cellulitis osteomyelitis was surgically removed and he had good blood supply to the remaining bone and soft tissues to facilitate closure He NEEDS to keep weight and pressure off of his toe surgical site he can weight- bear on his heel with crutches and a postoperative open toed shoe. needs proper nutrition and control of his diabetes which are all crucial in his healing. f/u Ortho 2 weeks for suture removal and reevaluate his capability to toe for work Discharge Information Condition at Discharge: Improved Follow Up: Weeks Disposition/Orders: D/C to Home Scheduled Aspirin (Aspir-Low) 81 Mg Tablet., 1 TAB PO DAILY for heart, #30 Ref 3 (Reported) Entered as Reported by: MATILDA FLORES on 08/06/192051 Last Action: Continued on 08/07/191509 by RUPALI KEYS Atorvastatin Calcium (Atorvastatin Calcium) 40 Mg Tablet, 1 TAB PO DAILY for cholesterol, #30 Ref 5 (Reported) Entered as Reported by: MATILDA FLORES on 08/06/192051 Last Action: Continued on 08/07/191509 by RUPALI KEYS Carvedilol (Coreg ) 6.25 Mg Tablet, 6.25 MG PO BIDWMEALS for CARDIAC, (Reported) Entered as Reported by: MATILDA FLORES on 08/06/192051 Last Action: Continued on 08/07/191509 by RUPALI KEYS Cephalexin (Keflex) 500 Mg Capsule, 1 CAP PO QID for cellulitis for 10 Days, #40 Ref 0 Prescribed by: RUPALI KEYS on 08/08/19 1015 Citalopram Hydrobromide (Citalopram Hbr) 40 Mg Tablet, 1 TAB PO DAILY for mood, #90 Ref 1 (Reported) Entered as Reported by: MATILDA FLORES on 08/06/192051 Last Action: Converted on 08/07/191509 by RUPALI KEYS Empagliflozin/Linagliptin (Glyxambi 10 mg-5 mg Tablet) 1 Each Tablet, 1 EACH PO DAILY for fsbs, (Reported) Entered as Reported by: MATILDA FLORES on 08/06/192051 Last Action: Converted on 08/07/191509 by RUPALI KEYS Gabapentin (Gabapentin ) 300 Mg Capsule, 300 MG PO BID for NEUROGENIC PAIN, (Reported) Entered as Reported by: MATILDA FLORES on 08/06/192051 Last Action: Continued on 08/07/191509 by RUPALI KEYS Icosapent Ethyl (Vascepa) 1 Gm Capsule, 2 CAP PO BID for cholesterol for 30 Days, #120 Ref 0 (Reported) Entered as Reported by: MATILDA FLORES on 08/06/192051 Last Action: Converted on 08/07/191509 by RUPALI KEYS Insulin Degludec (Tresiba) 100 Unit/1 Ml Vial, 40 UNIT SQ QHS for fsbs, (Reported) Entered as Reported by: MATILDA FLORES on 08/06/192051 Last Action: Converted on 08/07/191509 by RUPALI KEYS Lisinopril (Lisinopril) 5 Mg Tablet, 1 TAB PO DAILY for bp, #30 Ref 5 (Reported) Entered as Reported by: MATILDA FLORES on 08/06/192051 Last Action: Continued on 08/07/191509 by RUPALI KEYS Metformin Hcl (Metformin Hcl) 1,000 Mg Tablet, 1,000 MG PO BIDWMEALS for fsba, (Reported) Entered as Reported by: MATILDA FLORES on 08/06/192051 Last Action: Converted on 08/07/191509 by RUPALI KEYS Scheduled PRN Tramadol Hcl (Ultram) 50 Mg Tablet, 1 TAB PO PRN TID PRN for pain MDD 3 Tablet(s), #20 Ref 0 Prescribed by: RUPALI KEYS on 08/08/19 1016 Patient Instructions Patient Instructions < 30 min face to face RUPALI KEYS MD Aug 08, 2019 10:14
[2019-08-08] MEDS ORDERED: CEPH-264 PO (10:15)
[2019-08-08] MEDS ORDERED: TRAM-48 PO (10:16)
[2019-08-08 11:59] VITALS: BP 136/69
--- NOTE | 2019-08-08 15:13 | NUR ---
Discharge teaching completed. IV site removed without difficulty. Therapy taught patient how to use crutches. A new pair of crutches sent home with patient. He also has two prescriptions in hand. Pt and S/O state that they understand his discharge instructions and home medications. Dressings also sent home with patient. S/O is a [employer] and has demonstrated capability of properly caring for patient. Pt discharged to home; escorted out by staff via w/c.
== END 2019-08-08 15:18 | disposition home or self-care (01) | DRG 854 ==
LOC: ER 14:21 → 4 NORTH 17:09
PROVIDERS: ADMIT Internal Medicine; ATTEND Internal Medicine
PROC: 0Y6P0Z3 Detachment at Right 1st Toe, Low, Open Approach (ICD-10-PCS; principal; 2019-08-07 17:30)
DX: A41.9 Sepsis, unspecified organism (principal); M86.171 Other acute osteomyelitis, right ankle and foot; E11.69 Type 2 diabetes mellitus with other specified complication; F32.9 Major depressive disorder, single episode, unspecified; E11.40 Type 2 diabetes mellitus with diabetic neuropathy, unspecified; I10 Essential (primary) hypertension; E11.65 Type 2 diabetes mellitus with hyperglycemia; I25.10 Atherosclerotic heart disease of native coronary artery without angina pectoris; L03.031 Cellulitis of right toe; Z95.1 Presence of aortocoronary bypass graft; Z83.3 Family history of diabetes mellitus
CPT/HCPCS: 36415; 73630; 80048; 80053; 80202; 82565; 82962; 83036; 83605; 85025; 87040; 90471; 90686; A7015; J0696; J1815; J2001; J2370; J2405; J2704; J2765; J3370; J3490; J7030; J7040; 97116; 97535; A4461; G0378

== ENCOUNTER → 2019-09-07 | Outpatient (CLI) | payer BC ==
[2019-08-08 11:59] VITALS: BP 136/69
[~2019-09-07] MED LIST: ASPI81TA50 PO; ATOR40TA59 PO; CARV6.25 PO; CEPH-264 PO; CITA40TA5 PO; EMPA1TAB3 PO; GABA300C18 PO; ICOS1CAP PO; INSU100V37 SQ; LISI-338 PO; METF10007 PO; TRAM-48 PO
--- NOTE | 2019-09-07 10:06 | KCIC ---
Right lower extremity arterial ultrasound History:Nonhealing wound of the right great toe Findings: Multiple grayscale, color, and duplex spectral analysis sonographic images were acquired of the right lower extremity arteries. There are no previous similar exams. No vessel occlusion is demonstrated. There is slightly increased velocity of the right common femoral artery, also increased velocities between the popliteal and dorsalis pedis artery. There is a monophasic waveform of the dorsalis pedis artery at the base of the great toe otherwise biphasic and triphasic waveforms. There is minimal scattered plaque. Velocities in cm/sec: Common femoral artery 138 Profunda femoris artery 65 Proximal SFA 99 Mid SFA 127 Distal SFA 109 Popliteal artery 85 Posterior tibial artery 73 proximally and 43 distally Anterior tibial artery 83 Dorsalis pedis artery 141 at the ankle and 116 near the base of the great toe Impression: 1. No vessel occlusion is demonstrated. There are increased velocities between the right popliteal artery and dorsalis pedis artery which could be due to degree of underlying narrowing. There is mild scattered plaque. Ankle brachial indices FINDINGS: Right CHAUNCEY was 1.17, left 1.28. IMPRESSION: 1.Ankle brachial indices are considered within normal limits. Electronically signed by: Eric Conway MD (09/07/2019 10:03 AM) [id number]
== END | disposition home or self-care (01) ==
LOC: KCIC US 08:25
PROVIDERS: ATTEND Preventive Medicine Undersea and Hyperbaric Medicine
DX: I70.291 Other atherosclerosis of native arteries of extremities, right leg (principal)
CPT/HCPCS: 93922; 93926

== ENCOUNTER → 2019-09-07 | Outpatient (CLI) | payer BC ==
[2019-08-08 11:59] VITALS: BP 136/69
--- NOTE | 2019-09-07 14:20 | RAD ---
EXAM: MRI right foot without contrast. HISTORY: Right first toe infection status post debridement and antibiotic therapy. TECHNIQUE: MRI of the right foot was performed without intravenous contrast. COMPARISON: 08/06/2019. FINDINGS: The first distal phalanx has been amputated. There is a cortical erosion at the head of the first proximal phalanx consistent with recent debridement or acute osteomyelitis. There is underlying marrow edema within the remainder of the first proximal phalangeal diaphysis without marrow replacement. There is a packed overlying soft tissue wound at the amputation margin. Marrow edema at the base of the second distal phalanx may reflect distal interphalangeal osteoarthritis in the setting of a hammertoe deformity. No clear fractures appreciated at this site. The tip of the distal phalanx is not involved to suggest acute osteomyelitis. There are similar lesser findings at the third distal interphalangeal joint. There are fractures at the head of the fourth proximal phalanx, and at the head and base of the fifth proximal phalanx with associated marrow edema. There is no clear soft tissue collection without contrast. Edema and moderate fatty atrophy of the intrinsic musculature is consistent with denervation. Midfoot alignment appears preserved. The Lisfranc ligament is intact. There is moderate osteoarthritis at the tarsometatarsal joints. IMPRESSION: 1. Absent cortex at the head of the first proximal phalanx may be secondary to debridement or acute osteomyelitis. Correlate with surgical history. The distal phalanx has been amputated with a small residual overlying packed soft tissue wound. 2. Fractures of the fourth and fifth proximal phalanges as seen on prior radiographs. 3. Denervation/atrophy of the intrinsic musculature. Electronically signed by: Meghann Elizondo MD (09/07/2019 2:17 PM) [id number]
== END | disposition home or self-care (01) ==
LOC: MRI 12:18
PROVIDERS: ATTEND Preventive Medicine Undersea and Hyperbaric Medicine
DX: S92.511D Displaced fracture of proximal phalanx of right lesser toe(s), subsequent encounter for fracture with routine healing (principal); M19.071 Primary osteoarthritis, right ankle and foot; L08.89 Other specified local infections of the skin and subcutaneous tissue; X58.XXXD Exposure to other specified factors, subsequent encounter
CPT/HCPCS: 73721